=== PATIENT | male | born 1965 | race Caucasian/White ===

== ENCOUNTER 2021-01-09 13:45 | Inpatient (IN) | payer OTHER ==
[~2021-01-09] VITALS: Ht 172.7 cm; Wt 91.6 kg
[~2021-01-09 13:45] MED LIST: DICLOFENAC SODI50 MG PO; GABAPENTIN300 MG PO; GLIMEPIRIDE4 MG PO; IBUPROFEN400 MG PO; LANTUS100 UNITS/ SC; LANTUS100 UNITS/ SQ; LISINOPRIL10 MG PO; METFORMIN HCL1000 MG PO; METFORMIN HCL500 MG PO; METOCLOPRAMIDE10 MG PO; OTEZLA PO; PANTOPRAZOLE SO40 MG PO; SIMVASTATIN20 MG PO; SIMVASTATIN40 MG PO; ULTRAM 50MG50 MG PO; ZESTRIL10 MG PO
[2021-01-09] MEDS ORDERED: SODIUM CHLORIDE 0.9% 1000ML 1,000 ML IV STA (14:00)
[2021-01-09] MEDS ORDERED: PANTOPRAZOLE 40 MG 10ML VIAL IV NR (14:03)
[2021-01-09] MEDS ORDERED: ONDANSETRON HCL INJ 2MG/ML 2ML 2 MG/ML VIAL IV ONE (14:15)
[2021-01-09 14:20] LABS: BASOPHILS % 0.3 % (0.0-1.0); EOSINOPHILS % 0.1 % (0.0-6.0); HEMATOCRIT 46.9 % (38.2-49.6); HEMOGLOBIN 14.4 g/dL (14.0-18.0); LYMPHOCYTES # (AUTO) 0.6 (1.0-3.2); LYMPHOCYTES % 5.3 % (18.0-39.1); MEAN CORPUSCULAR HEMOGLOBIN 22.9 pg (28-32); MEAN CORPUSCULAR HGB CONC 30.7 g/dL (31-35); MEAN CORPUSCULAR VOLUME 74.6 fL (81-99); MONOCYTES # (AUTO) 0.3 (0.2-0.8); MONOCYTES % 3.2 % (4.4-11.3); NEUTROPHILS # (AUTO) 9.3 (2.1-6.9); PLATELET COUNT 285 x10e3/uL (140-360); RED BLOOD COUNT 6.29 x10e6/uL (4.3-5.7); RED CELL DISTRIBUTION WIDTH 17.8 % (11.7-14.4)
[2021-01-09 14:26] LABS: INR 0.82; PROTHROMBIN TIME 11.8 seconds (11.9-14.5)
[2021-01-09 14:27] LABS: PARTIAL THROMBOPLASTIN TIME 22.5 seconds (23.8-35.5)
[2021-01-09 14:34] LABS: CLARITY,URINE SL CLOUDY (CLEAR); COLOR,URINE YELLOW (YELLOW); LEUKOCYTE ESTERASE ,URINE NEGATIVE (NEGATIVE); NITRITE,URINE NEGATIVE (NEGATIVE)
[2021-01-09 14:35] LABS: BACTERIA,URINE RARE /HPF; EPITHELIAL CELLS,URINE FEW /LPF; KETONES,URINE 2+ (NEGATIVE); PROTEIN,URINE DIPSTICK >=300 (NEGATIVE); URINE UROBILINOGEN 0.2 mg/dL (0.2 - 1)
[2021-01-09 14:36] LABS: MAGNESIUM 1.5 MG/DL (1.3-2.1)
[2021-01-09 14:38] LABS: ALBUMIN 4.7 g/dL (3.5-5.0); ALBUMIN/GLOBULIN RATIO 1.3 (0.8-2.0); ANION GAP 26.6 mmol/L (8-16); CALCIUM 12.1 mg/dL (8.4-10.2); CHOL/HDL RATIO 5.7 (3.9-4.7); CREATININE, SERUM 1.67 mg/dL (0.72-1.25); POTASSIUM 4.6 mmol/L (3.5-5.1)
[2021-01-09 14:45] LABS: CREATINE KINASE MB 3.3 ng/mL (0-5.0)
[2021-01-09] MEDS ORDERED: IOPAMIDOL 370 MG/ML 200 ML INFUS..BTL INJ ONE (15:12)
[2021-01-09] MEDS ORDERED: SODIUM CHLORIDE 0.9% 50ML 50 ML ONE (15:12)
[2021-01-09] MEDS ORDERED: PROMETHAZINE 12.5MG/ NACL 0.9% 12.5 MG/50 ML BAG IV NR (15:30)
[2021-01-09] MEDS ORDERED: PROMETHAZINE 25MG/ NS 50ML (IV) IV ONE (17:00)
[2021-01-09] MEDS: CEFEPIME 2 GM/NS 0.9% 100 ML 100 ML IV SCH (17:26)
[2021-01-09] MEDS ORDERED: PROMETHAZINE 12.5MG/ NACL 0.9% 12.5 MG/50 ML BAG IV PRN (18:00)
[2021-01-09] MEDS ORDERED: ONDANSETRON HCL INJ 2MG/ML 2ML 2 MG/ML VIAL IV PRN (18:00)
[2021-01-09] MEDS ORDERED: MORPHINE SULFATE INJ 4 MG/ML INJ 1ML IV PRN (18:00)
[2021-01-09] MEDS: METRONIDAZOLE 500MG/NS 100ML 100 ML IV SCH ×2 (18:18→23:10)
[2021-01-09] MEDS: SODIUM CHLORIDE 0.9% 1000ML 1,000 ML IV SCH ×2 (18:18→22:13)
[2021-01-09] MEDS ORDERED: ACETAMINOPHEN 325 MG TAB PO PRN (20:00)
[2021-01-09 21:23] VITALS: BP 166/83
[2021-01-09 21:30] VITALS: BP 166/83
[2021-01-09 23:08] LABS: CREATINE KINASE MB 2.7 ng/mL (0-5.0)
[2021-01-10] VITALS (9 sets, daily range): BP systolic 137–174; BP diastolic 73–92
[2021-01-10] MEDS: METRONIDAZOLE 500MG/NS 100ML 100 ML IV SCH ×4 (05:20→23:52)
[2021-01-10 06:08] LABS: BASOPHILS % 0.3 % (0.0-1.0); EOSINOPHILS % 0.1 % (0.0-6.0); HEMATOCRIT 41.3 % (38.2-49.6); HEMOGLOBIN 12.3 g/dL (14.0-18.0); LYMPHOCYTES # (AUTO) 0.9 (1.0-3.2); LYMPHOCYTES % 7.9 % (18.0-39.1); MEAN CORPUSCULAR HGB CONC 29.8 g/dL (31-35); MEAN CORPUSCULAR VOLUME 77.2 fL (81-99); MONOCYTES # (AUTO) 0.7 (0.2-0.8); MONOCYTES % 6.4 % (4.4-11.3); NEUTROPHILS # (AUTO) 9.1 (2.1-6.9); NEUTROPHILS % 84.7 % (38.7-80.0); PLATELET COUNT 260 x10e3/uL (140-360); RED BLOOD COUNT 5.35 x10e6/uL (4.3-5.7); RED CELL DISTRIBUTION WIDTH 17.9 % (11.7-14.4)
[2021-01-10 06:29] LABS: ALBUMIN 3.7 g/dL (3.5-5.0); ALBUMIN/GLOBULIN RATIO 1.2 (0.8-2.0); ANION GAP 19.1 mmol/L (8-16); CALCIUM 9.4 mg/dL (8.4-10.2); CREATININE, SERUM 1.62 mg/dL (0.72-1.25); POTASSIUM 4.1 mmol/L (3.5-5.1)
[2021-01-10 06:56] LABS: CREATINE KINASE MB 2.5 ng/mL (0-5.0)
[2021-01-10] MEDS: PANTOPRAZOLE 40 MG 10ML VIAL IV SCH (09:10)
[2021-01-10] MEDS ORDERED: PIPER-TAZ 3.375 GM 50 ML IV SCH (12:00)
[2021-01-10] MEDS: SODIUM CHLORIDE 0.9% 1000ML 1,000 ML IV SCH ×2 (12:55→17:23)
[2021-01-10 22:28] LABS: % IRON SATURATION 8 % (15-50); IRON 35 ug/dL (65-175); TOTAL IRON BINDING CAPACITY 431 ug/dL (261-478); TRANSFERRIN 308 mg/dL (174-364)
[2021-01-11] VITALS (8 sets, daily range): BP systolic 114–156; BP diastolic 56–88
[2021-01-11] MEDS: CEFEPIME 2 GM/NS 0.9% 100 ML 100 ML IV SCH ×2 (06:00→18:19)
[2021-01-11] MEDS: METRONIDAZOLE 500MG/NS 100ML 100 ML IV SCH ×3 (06:43→17:05)
[2021-01-11] MEDS: SODIUM CHLORIDE 0.9% 1000ML 1,000 ML IV SCH ×2 (08:13→11:42)
[2021-01-11] MEDS: IRON SUCROSE 100 MG in SODIUM CHLORIDE 0.9% 100 ML 100 ML IV SCH (09:09)
[2021-01-11] MEDS: PANTOPRAZOLE 40 MG 10ML VIAL IV SCH (09:09)
[2021-01-11] MEDS ORDERED: GABAPENTIN600 MG PO (16:11)
[2021-01-11] MEDS ORDERED: METFORMIN HCL1000 MG PO (16:11)
[2021-01-11] MEDS ORDERED: LANTUS 3ML100 UNITS/ SQ (16:11)
[2021-01-11] MEDS ORDERED: PROTONIX40 MG PO (16:11)
[2021-01-11] MEDS ORDERED: ZESTRIL2.5 MG PO (16:11)
[2021-01-11] MEDS ORDERED: LIPITOR20 MG PO (16:11)
[2021-01-11] MEDS ORDERED: JARDIANCE25 MG PO (16:13)
[2021-01-11] MEDS ORDERED: ACTOS15 MG PO (16:13)
[2021-01-11] MEDS ORDERED: DEXTROSE 50% SYRINGE 50 ML IV PRN (16:15)
[2021-01-11] MEDS: INSULIN REGULAR, HUMAN 100 UNIT/1 ML 3ML VIAL SQ SCH ×2 (17:03→21:00)
[2021-01-11] MEDS: INSULIN GLARGINE 100 UNITS/ML VIAL SQ SCH (17:03)
[2021-01-11] MEDS: ATORVASTATIN 40 MG TAB PO SCH (22:04)
[2021-01-12] VITALS (8 sets, daily range): BP systolic 138–170; BP diastolic 66–87
[2021-01-12] MEDS: SODIUM CHLORIDE 0.9% 1000ML 1,000 ML IV SCH ×3 (02:00→18:00)
[2021-01-12] MEDS: METRONIDAZOLE 500MG/NS 100ML 100 ML IV SCH ×4 (05:24→17:20)
[2021-01-12] MEDS: CEFEPIME 2 GM/NS 0.9% 100 ML 100 ML IV SCH ×2 (05:24→18:34)
[2021-01-12 06:18] LABS: BASOPHILS # (AUTO) 0.1 (0.0-0.1); BASOPHILS % 1.2 % (0.0-1.0); EOSINOPHILS # (AUTO) 0.2 (0.0-0.4); HEMATOCRIT 38.3 % (38.2-49.6); HEMOGLOBIN 11.5 g/dL (14.0-18.0); LYMPHOCYTES # (AUTO) 1.3 (1.0-3.2); LYMPHOCYTES % 22.2 % (18.0-39.1); MEAN CORPUSCULAR HEMOGLOBIN 23.2 pg (28-32); MEAN CORPUSCULAR VOLUME 77.2 fL (81-99); MONOCYTES # (AUTO) 0.6 (0.2-0.8); MONOCYTES % 10.1 % (4.4-11.3); NEUTROPHILS # (AUTO) 3.6 (2.1-6.9); PLATELET COUNT 215 x10e3/uL (140-360); RED BLOOD COUNT 4.96 x10e6/uL (4.3-5.7); RED CELL DISTRIBUTION WIDTH 16.7 % (11.7-14.4)
[2021-01-12 06:53] LABS: ANION GAP 12.8 mmol/L (8-16); BLOOD UREA NITROGEN 14 mg/dL (7-26); BUN/CREATININE RATIO 13 (6-25); CALCIUM 8.2 mg/dL (8.4-10.2); CARBON DIOXIDE 25 mmol/L (22-29); CHLORIDE 110 mmol/L (98-107); CREATININE, SERUM 1.08 mg/dL (0.72-1.25); EST GLOMERULAR FILTRATION RATE > 60 ML/MIN (60-); GLUCOSE 132 mg/dL (74-118); MAGNESIUM 1.6 MG/DL (1.3-2.1); PHOSPHORUS 2.5 MG/DL (2.3-4.7); POTASSIUM 3.8 mmol/L (3.5-5.1); SODIUM 144 mmol/L (136-145)
[2021-01-12] MEDS: INSULIN REGULAR, HUMAN 100 UNIT/1 ML 3ML VIAL SQ SCH ×4 (07:30→21:00)
[2021-01-12] MEDS: INSULIN GLARGINE 100 UNITS/ML VIAL SQ SCH ×2 (09:00→17:16)
[2021-01-12] MEDS: IRON SUCROSE 100 MG in SODIUM CHLORIDE 0.9% 100 ML 100 ML IV SCH (09:53)
[2021-01-12] MEDS: PANTOPRAZOLE 40 MG 10ML VIAL IV SCH (09:53)
[2021-01-12] MEDS: LISINOPRIL 2.5 MG TAB PO SCH (12:04)
[2021-01-12] MEDS ORDERED: MIDAZOLAM HCL 2 MG/2 ML VIAL ONE (12:34)
[2021-01-12] MEDS ORDERED: FENTANYL CITRATE/PF 100MCG/2 ML INJ ONE (12:34)
[2021-01-12] MEDS ORDERED: LIDOCAINE HCL 2% LOCAL INJ 5 ML SDV VIAL INJ ONE (13:50)
[2021-01-12] MEDS ORDERED: PROPOFOL IV EMULSION 10 MG/ML 20 ML VIAL ONE (13:50)
[2021-01-12] MEDS ORDERED: MAGNESIUM SULFATE 2GM/50ML 50 ML IV ONE (16:45)
[2021-01-12] MEDS: ATORVASTATIN 40 MG TAB PO SCH (22:16)
[2021-01-13] MEDS: METRONIDAZOLE 500MG/NS 100ML 100 ML IV SCH ×3 (00:10→12:21)
[2021-01-13 00:47] VITALS: BP 159/81
[2021-01-13 05:59] VITALS: BP 146/71
[2021-01-13 06:10] LABS: BASOPHILS % 0.6 % (0.0-1.0); EOSINOPHILS # (AUTO) 0.1 (0.0-0.4); HEMATOCRIT 37.8 % (38.2-49.6); HEMOGLOBIN 11.9 g/dL (14.0-18.0); LYMPHOCYTES % 15.3 % (18.0-39.1); MEAN CORPUSCULAR HEMOGLOBIN 23.6 pg (28-32); MEAN CORPUSCULAR HGB CONC 31.5 g/dL (31-35); MONOCYTES # (AUTO) 0.6 (0.2-0.8); MONOCYTES % 9.2 % (4.4-11.3); NEUTROPHILS # (AUTO) 4.7 (2.1-6.9); NEUTROPHILS % 72.6 % (38.7-80.0); PLATELET COUNT 203 x10e3/uL (140-360); RED BLOOD COUNT 5.04 x10e6/uL (4.3-5.7); RED CELL DISTRIBUTION WIDTH 16.5 % (11.7-14.4)
[2021-01-13] MEDS: CEFEPIME 2 GM/NS 0.9% 100 ML 100 ML IV SCH (06:35)
[2021-01-13] MEDS: SODIUM CHLORIDE 0.9% 1000ML 1,000 ML IV SCH ×2 (06:35→13:25)
[2021-01-13 06:42] LABS: ANION GAP 11.8 mmol/L (8-16); BLOOD UREA NITROGEN 14 mg/dL (7-26); BUN/CREATININE RATIO 13 (6-25); CARBON DIOXIDE 26 mmol/L (22-29); CHLORIDE 104 mmol/L (98-107); CREATININE, SERUM 1.07 mg/dL (0.72-1.25); EST GLOMERULAR FILTRATION RATE > 60 ML/MIN (60-); GLUCOSE 231 mg/dL (74-118); POTASSIUM 3.8 mmol/L (3.5-5.1); SODIUM 138 mmol/L (136-145)
[2021-01-13] MEDS: INSULIN REGULAR, HUMAN 100 UNIT/1 ML 3ML VIAL SQ SCH ×3 (08:30→16:14)
[2021-01-13] MEDS: INSULIN GLARGINE 100 UNITS/ML VIAL SQ SCH (08:30)
[2021-01-13 09:04] VITALS: BP 181/90
[2021-01-13] MEDS: PANTOPRAZOLE 40 MG 10ML VIAL IV SCH (09:30)
[2021-01-13] MEDS: IRON SUCROSE 100 MG in SODIUM CHLORIDE 0.9% 100 ML 100 ML IV SCH (09:30)
[2021-01-13] MEDS: LISINOPRIL 2.5 MG TAB PO SCH (09:30)
[2021-01-13 11:46] VITALS: BP 175/91
[2021-01-13] MEDS ORDERED: METOPROLOL SUCC50 MG PO (15:54)
[2021-01-13] MEDS ORDERED: METOPROLOL SUCCINATE 50 MG TAB XL PO SCH (16:00)
== END 2021-01-13 16:44 | disposition home or self-care (01) | DRG 392 ==
LOC: ER 15:31 → ERHOLD 18:00 → MED/SURG2 21:14
PROVIDERS: ADMIT Internal Medicine; ATTEND Internal Medicine
PROC: 0DB78ZX Excision of Stomach, Pylorus, Via Natural or Artificial Opening Endoscopic, Diagnostic (ICD-10-PCS; principal; 2021-01-12 15:30)
DX: K52.82 Eosinophilic colitis (principal); N12 Tubulo-interstitial nephritis, not specified as acute or chronic; N17.9 Acute kidney failure, unspecified; N39.0 Urinary tract infection, site not specified; N18.30 Chronic kidney disease, stage 3 unspecified; Z20.822 Contact with and (suspected) exposure to COVID-19; I12.9 Hypertensive chronic kidney disease with stage 1 through stage 4 chronic kidney disease, or unspecified chronic kidney disease; E11.22 Type 2 diabetes mellitus with diabetic chronic kidney disease; I25.10 Atherosclerotic heart disease of native coronary artery without angina pectoris; E78.5 Hyperlipidemia, unspecified; E11.43 Type 2 diabetes mellitus with diabetic autonomic (poly)neuropathy; K31.84 Gastroparesis; B96.1 Klebsiella pneumoniae [K. pneumoniae] as the cause of diseases classified elsewhere; E83.42 Hypomagnesemia; E11.65 Type 2 diabetes mellitus with hyperglycemia
CPT/HCPCS: 36415; 43239; 71045; 74177; 80048; 80053; 80061; 81001; 82150; 82550; 82553; 82607; 82746; 82948; 83036; 83540; 83690; 83735; 84100; 84466; 84484; 85025; 85045; 85610; 85730; 87086; 87186; 88305; 88312; 93005; 96361; 99284; J1756; J1815; J1817; J2001; J2250; J2405; J2550; J3010; J3475; J7030; Q9967; U0002